=== PATIENT | male | born 1960 | race Caucasian/White ===

== ENCOUNTER 2017-01-01 08:28 | Day surgery (SDC) | payer BC ==
[2017-01-01] MEDS ORDERED: MIDAZOLAM HCL 2MG/2ML VIAL IV ONE (14:00)
[2017-01-01] MEDS ORDERED: LIDOCAINE 2% MDV (20MG/ML) 20ML VIAL IV ONE (14:00)
[2017-01-01] MEDS ORDERED: PROPOFOL 10 MG/ML VIAL IV ONE (14:00)
--- NOTE | 2017-01-05 11:10 | Operative Note ---
DATE OF SURGERY: 01/01/2017 REQUESTING PHYSICIAN: Mark Rodríguez DO SURGEON: Tiffanie Iglesias MD POSTOPERATIVE DIAGNOSES: 1. Left-sided colonic diverticulosis. 2. A 3 mm sessile polyp in the ascending colon that was removed by cold biopsy forceps. OPERATION: COLONOSCOPY and exam. REASON FOR PROCEDURE: This is a 56-year-old male with a history of colon polyps who presented for surveillance colonoscopy. SEDATION: Sedation as per anesthesia. Pulse oximetry was monitored throughout the duration of the procedure to maintain O2 saturation of 90% or greater. Supplemental oxygen was administered via nasal cannula. Cardiac and vital signs were monitored throughout the duration of the procedure and they were stable. PROCEDURE: Description of the procedure of colonoscopy, risks, and alternatives to the procedure including the risk of bleeding and perforation among others were explained to the patient who voiced understanding and agreed to have the procedure done. A physical examination was performed and the patient was found stable for sedation. The patient was then placed in the left lateral position and sedation was initiated. Digital rectal exam was performed and showed small external hemorrhoids with no palpable rectal masses. A lubricated Olympus PCF-180AL colonoscope was then inserted into the rectum under direct visualization and was advanced to the cecum without difficulty. The ileocecal valve and appendiceal orifice were identified and photographed. The colonic mucosa was carefully examined upon insertion of the colonoscope. There were scattered diverticula noted in the sigmoid and descending colon. In the ascending colon was a 3 mm sessile polyp that was noted and was removed by cold biopsy forceps. There were no other lesions noted. The colonoscope was then withdrawn while carefully examining the colonic mucosal surfaces. No other lesions were noted. The bowel preparation was good. In the rectum, retroflexion was performed and grade 1 internal hemorrhoids were noted. The colonoscope was then withdrawn and the procedure was terminated. The patient tolerated the procedure well without any complications. The patient remained with stable vital signs and was sent to the recovery room. PLAN AND RECOMMENDATIONS: 1. Will follow up on histology of the polyp. 2. The patient is to have repeat colonoscopy for surveillance in 3 or 5 years depending on histology of the polyp. Thank you for allowing me to participate in the care of this patient. Tiffanie Iglesias MD CC: Mark Rodríguez DO [facility]
== END 2017-01-01 11:10 | disposition home or self-care (01) ==
LOC: HOP 08:28
PROVIDERS: ATTEND Internal Medicine Gastroenterology
DX: D12.2 Benign neoplasm of ascending colon (principal); K57.30 Diverticulosis of large intestine without perforation or abscess without bleeding; I10 Essential (primary) hypertension; E78.00 Pure hypercholesterolemia, unspecified

== ENCOUNTER 2017-06-24 12:25 | Emergency (ER) | payer BC ==
--- NOTE | 2017-06-24 13:32 | Emergency Department Record ---
History of Present Illness - General Chief complaint: Eye Problem Stated complaint: LEFT EYE PAIN/HEADACHE Time Seen by Provider: 06/24/17 12:42 Source: Patient Mode of Arrival: Ambulatory Limitations: No limitations - History of Present Illness Initial comments: The patient is here due to a 2 day hx of L eye pain. The pain is mainly around the L eye superiorly > inferiorly. It is a throbbing pain and the onset was yesterday. The pain did gradually worsen and then it was quite severe last night. He then did take Alleve last night and it took the pain away. Today the pain started back and has gradually worsened to the point that he was nauseated. The patient denies any visual changes, blurred vision, swelling, trauma or injury. MD chief complaint: Eye pain Onset/Timin -: Days(s) Onset Description: Gradual Location: Left eye Place: Home If Injury: None Eye Symptoms: Redness Severity: Moderate Severity scale (1-10): 8 If Pain, Quality: Aching, Throbbing Consistency: Constant Associated Symptoms: Headache, Nausea/vomiting Treatments Prior to Arrival: None - Related Data Visual acuity (L) = 20/: 30 Visual acuity (R) = 20/: 20 With correction: No Previous Rx's Medication Instructions Recorded Amoxicillin/Potassium Clav 1 tab PO BID #20 tablet 06/24/17 [Augmentin 875Mg/125Mg] Fluticasone Propionate [Flonase] 2 spray EACH NARES DAILY #1 bottle 06/24/17 Allergies Allergy/AdvReac Type Severity Reaction Status Date / Time No Known Drug Intolerances Allergy Unknown PT UNSURE Verified 07/19/16 18:02 OF REACTION Travel Screening - Travel/Exposure Within Last 30 Days Have you traveled within the last 30 days?: No Review of Systems Constitutional: Denies: Chills, Fever Eyes: Reports: Eye pain. Denies: Eye discharge ENT: Denies: Congestion Respiratory: Denies: Cough Past Medical History - SOCIAL HISTORY Smoking Status: Light tobacco smoker (<10/day) Alcohol Use: Rare Drug Use: None - RESPIRATORY Hx Respiratory Disorders: Yes Hx Sleep Apnea: Yes Hx of CPAP: Yes - CARDIOVASCULAR Hx Cardio Disorders: Yes Hx Hypertension: Yes - NEURO Hx Neuro Disorders: No - GI Hx GI Disorders: Yes Hx of Polyps: Yes - Hx Genitourinary Disorders: No - ENDOCRINE Hx Endocrine Disorders: No - MUSCULOSKELETAL Hx Musculoskeletal Disorders: No Comment:: n/a - PSYCH Hx Psych Problems: Yes Hx Anxiety: Yes - HEMATOLOGY/ONCOLOGY Hx Hematology/Oncology Disorders: No Family Medical History Any Significant Family History?: Yes Hx Diabetes: Grandparents Hx Heart Disease: Father Hx HTN: Father Physical Exam - General General Appearance: Alert, Oriented x3, Cooperative, No acute distress - Head Head exam: Atraumatic, Normocephalic, Normal inspection - Eye Eye exam: Normal appearance, PERRL, EOMI, Periorbital tenderness (The pain is reproducible to palpation around the L eye periorbitally. ), Other (The patient did receive alcaine in the L eye which did resolve his pain 90%. His cornea is clear on flourescein staining.). negative: Periorbital swelling With correction: No IOP (L) in mmH IOP measured with: Tonopen - Neck Neck exam: Normal inspection, Full ROM. negative: Meningismus (The neck is very supple.), Tenderness - Respiratory Respiratory exam: Normal lung sounds bilaterally. negative: Respiratory distress - Cardiovascular Cardiovascular Exam: Regular rate, Normal rhythm, Normal heart sounds Course Vital Signs 06/24/17 12:30 Temperature 97.9 F Pulse Rate 77 Respiratory 16 Rate Blood Pressure 142/100 Pulse Ox 94 L - Reevaluation(s) Reevaluation #1: The patient is doing very well at this time. I did explain the CT results that do demonstrate extensive sinus dz with the worst spot the L frontal area. We will place the patient on Augmentin and have his F/U with his PCP next week if needed. 06/24/17 14:51 Medical Decision Making - Data Complexity MDM Data: Labs Ordered and/or Reviewed, X-Ray Ordered and/or Reviewed - Lab Data Result diagrams: 06/24/17 13:55 06/24/17 13:55 - Radiology Data Radiology results: Report reviewed (Head CT: Extensive sinus dz greatest over the L frontal area.) Disposition Disposition: Discharge Clinical Impression: Sinusitis, acute Qualifiers: Sinusitis location: other Recurrence: non-recurrent Qualified Code(s): J01.80 - Other acute sinusitis Disposition: Home, Self-Care Condition: (1) Good Instructions: Sinusitis (ED) Additional Instructions: Please continue your home pain medicines and continue the Augmentin and Flonase. Please see your PCP next week for recheck if not better and return to the ER for any increased pain, fever, headache or vomiting. Prescriptions: Amoxicillin/Potassium Clav [Augmentin 875Mg/125Mg] 1 tab PO BID #20 tablet Fluticasone Propionate [Flonase] 2 spray EACH NARES DAILY #1 bottle Forms: Patient Portal Access Time of Disposition: 14:54 Quality - Quality Measures Quality Measures: N/A - Blood Pressure Screening View Details: Yes Does Patient Have Any of the Following: No Blood Pressure Classification: Normal BP Reading Systolic Measurement: 110 Diastolic Measurement: 72 Screening for High Blood Pressure: < Normal BP, F/U Not Required > [G8783]
[2017-06-24] MEDS ORDERED: PROPARACAINE HCL OPTH 15ML BTL OPTH ONE (13:38)
[2017-06-24 14:03] LABS: BASO % 0.4 % (0-6); EOS % 1.7 % (0-6); GRAN % 80.2 % (47-80); HEMATOCRIT 39.7 % (42.0-52.0); HEMOGLOBIN 13.4 gm/dl (14.0-18.0); LYMPH % 11.4 % (16-45); MEAN CELL VOLUME 93.6 fl (81-97); MEAN CORPUSCULAR HEMOGLOBIN 31.6 pg (27-33); MEAN CORPUSCULAR HGB CONC 33.8 g/dl (32-36); MEAN PLATELET VOLUME 9.1 fl (7.4-10.4); MONO % 6.3 % (0-9); PLATELET COUNT 273 K/uL (130-400); RED BLOOD COUNT 4.24 M/uL (4.40-5.70); RED CELL DISTRIBUTION WIDTH 12.5 % (11.5-14.5); WHITE BLOOD COUNT W/O DIFF 13.3 K/uL (4.2-12.2)
[2017-06-24 14:25] LABS: ALB/GLOB RATIO 1.4 (1.1-1.8); ALKALINE PHOSPHATASE 64 U/L (40-129); ALT/SGPT 21 U/L (<41); AST/SGOT 20 U/L (10.0-50.0); BLOOD UREA NITROGEN 16 mg/dL (6-20); CREATININE 0.8 mg/dL (0.7-1.2); EST GLOMERULAR FILTRATION RATE > 60 mL/min; GLUCOSE,RANDOM 105 mg/dL (74-109); TOTAL PROTEIN 6.9 g/dL (6.6-8.7)
[2017-06-24] MEDS ORDERED: AMOXICILLIN/POTASSIUM CLAV 875MG/125MG TABLET PO ONE (14:49)
--- NOTE | 2017-06-26 07:47 | CT SCAN REPORT ---
DATE: 06/24/2017. EXAM: CT OF THE BRAIN WITHOUT CONTRAST. HISTORY: Headache. TECHNIQUE: CT of the brain without contrast. COMPARISON: MRI of the brain dated 10/25/2010. FINDINGS: The globes are intact. Mucosal thickening of the ethmoid air cells, maxillary sinuses, sphenoid sinuses with near complete opacification of the left frontal sinus. Air fluid level in the left frontal sinus. No displaced or depressed skull fracture. No intra- or extra-axial hemorrhage. CT limited for evaluation of acute infarct. No CT evidence for large or territorial acute infarct. No mass or midline shift. IMPRESSION: TORRES SINUSITIS. THE REMAINDER IS UNREMARKABLE. JOB NUMBER: [id number] [facility]
== END 2017-06-24 15:10 | disposition home or self-care (01) ==
LOC: ER 12:25
DX: J01.80 Other acute sinusitis (principal); H57.12 Ocular pain, left eye; R11.0 Nausea; R51 Headache; I10 Essential (primary) hypertension; F17.210 Nicotine dependence, cigarettes, uncomplicated
CPT/HCPCS: 70450; 80053; 85025; 99283; 99284

== ENCOUNTER 2017-09-13 12:10 | Emergency (ER) | payer BC ==
[2017-09-13] MEDS ORDERED: HYDROMORPHONE HCL 1 MG/ML SYRINGE IVP ONE ×3 (12:25→14:04)
[2017-09-13] MEDS ORDERED: MIDAZOLAM HCL 2MG/2ML VIAL IV ONE ×2 (12:54→14:03)
--- NOTE | 2017-09-13 14:23 | Emergency Department Record ---
History of Present Illness - General Chief complaint: Extremity Problem Stated complaint: LEFT SHOULDER DISLOCATION Time Seen by Provider: 09/13/17 12:21 Source: Patient, RN notes reviewed Mode of Arrival: Ambulatory - History of Present Illness Initial comments: putting his shirt on dislocated his shoulder left. History of previous dislocations and one time had to go to [facility]. Onset/Timin -: Minutes(s) Location: Left, Shoulder History of Same: Yes Severity scale (1-10): >10 Quality: Sharp Consistency: Constant Improves with: Immobilization Worsens with: Exertion, Palpation, Weight bearing Associated Symptoms: Denies other symptoms - Related Data Previous Rx's Medication Instructions Recorded Amoxicillin/Potassium Clav 1 tab PO BID #20 tablet 06/24/17 [Augmentin 875Mg/125Mg] Fluticasone Propionate [Flonase] 2 spray EACH NARES DAILY #1 bottle 06/24/17 Hydrocodone/Acetaminophen [Oneida 1 each PO Q4HR #14 tablet 09/13/17 5-325 Tablet] Allergies Allergy/AdvReac Type Severity Reaction Status Date / Time No Known Drug Intolerances Allergy Unknown PT UNSURE Verified 07/19/16 18:02 OF REACTION Travel Screening - Travel/Exposure Within Last 30 Days Have you traveled within the last 30 days?: No Review of Systems Reviewed: No additional complaints except as noted below Constitutional: Reports: As per HPI. Denies: Chills, Fever, Malaise, Night sweats, Weakness, Weight change Eyes: Reports: As per HPI. Denies: Eye discharge, Eye pain, Photophobia, Vision change ENT: Reports: As per HPI. Denies: Congestion, Dental pain, Ear pain, Epistaxis , Hearing loss, Throat pain Respiratory: Reports: As per HPI. Denies: Cough, Dyspnea, Hemoptysis, Stridor, Wheezes Cardiovascular: Reports: As per HPI. Denies: Arrhythmia, Chest pain, Dyspnea on exertion, Edema, Murmurs, Orthopnea, Palpitations, Paroxysmal nocturnal dyspnea, Rheumatic Fever, Syncope Endocrine: Reports: As per HPI. Denies: Fatigue, Heat or cold intolerance, Polydipsia, Polyuria Gastrointestinal: Reports: As per HPI. Denies: Abdominal pain, Constipation, Diarrhea, Hematemesis, Hematochezia, Melena, Nausea, Vomiting Genitourinary: Reports: As per HPI. Denies: Dysuria, Frequency, Hematuria, Incontinence, Retention, Testicular pain, Testicular mass, Urgency Musculoskeletal: Reports: As per HPI, Arthralgia. Denies: Back pain, Gout, Joint swelling, Myalgia, Neck pain Skin: Reports: As per HPI. Denies: Bruising, Change in color, Change in hair/ nails, Lesions, Pruritus, Rash Neurological: Reports: As per HPI. Denies: Abnormal gait, Confusion, Headache, Numbness, Paresthesias, Seizure, Tingling, Tremors, Vertigo, Weakness Psychiatric: Reports: As per HPI. Denies: Anxiety, Auditory hallucinations, Depression, Homicidal thoughts, Suicidal thoughts, Visual hallucinations Hematological/Lymphatic: Reports: As per HPI. Denies: Anemia, Blood Clots, Easy bleeding, Easy bruising, Swollen glands Past Medical History - SOCIAL HISTORY Smoking Status: Light tobacco smoker (<10/day) Alcohol Use: None Drug Use: None - RESPIRATORY Hx Respiratory Disorders: Yes Hx Sleep Apnea: Yes Hx of CPAP: Yes - CARDIOVASCULAR Hx Cardio Disorders: Yes Hx Hypertension: Yes - NEURO Hx Neuro Disorders: No - GI Hx GI Disorders: Yes Hx of Polyps: Yes - Hx Genitourinary Disorders: No - ENDOCRINE Hx Endocrine Disorders: No - MUSCULOSKELETAL Hx Musculoskeletal Disorders: No Comment:: n/a - PSYCH Hx Psych Problems: Yes Hx Anxiety: Yes - HEMATOLOGY/ONCOLOGY Hx Hematology/Oncology Disorders: No Family Medical History Any Significant Family History?: Yes Hx Diabetes: Grandparents Hx Heart Disease: Father Hx HTN: Father Physical Exam - General General Appearance: Alert, Oriented x3, Cooperative, No acute distress - Head Head exam: Normal inspection - Eye Eye exam: Normal appearance, PERRL Pupils: Normal accommodation - ENT ENT exam: Normal exam, Mucous membranes moist, Normal external ear exam, Normal orophraynx, TM's normal bilaterally Ear exam: Normal external inspection. negative: External canal tenderness Nasal Exam: Normal inspection. negative: Discharge, Sinus tenderness Mouth exam: Normal external inspection, Tongue normal Teeth exam: Normal inspection. negative: Dental caries Throat exam: Normal inspection. negative: Tonsillar erythema, Tonsillar exudate - Neck Neck exam: Normal inspection, Full ROM. negative: Tenderness - Respiratory Respiratory exam: Normal lung sounds bilaterally. negative: Respiratory distress - Cardiovascular Cardiovascular Exam: Regular rate, Normal rhythm, Normal heart sounds - GI/Abdominal GI/Abdominal exam: Soft, Normal bowel sounds. negative: Tenderness - Rectal Rectal exam: Deferred - exam: Deferred - Extremities Extremities exam: Normal capillary refill, Tenderness (step off of anterior dislocation) - Back Back exam: Reports: Normal inspection, Full ROM. Denies: Muscle spasm, Rash noted, Tenderness - Neurological Neurological exam: Alert, Normal gait, Oriented X3, Reflexes normal - Psychiatric Psychiatric exam: Normal affect, Normal mood - Skin Skin exam: Dry, Intact, Normal color, Warm Course Vital Signs 09/13/17 12:21 Temperature 97.9 F Pulse Rate 90 Respiratory 20 Rate Blood Pressure 162/111 Pulse Ox 96 - Reevaluation(s) Reevaluation #1: reduction of shoulder with conscious sedation 3 of dilaudid and 4 mg of versid in increments patient's pulseox and vitals good during the procedure. initially tried the hennipen external rotation maneuver, than traction countertraction across the chest, than laying prone holding one galloon of water. than supine and redid the hennipen external rotation and it spilled in when his arm was totally abducted. patient waking up from conscious sedation and went to xray for post reduction films. 09/13/17 14:17 09/13/17 14:18 Disposition Clinical Impression: Dislocation, shoulder closed Qualifiers: Encounter type: initial encounter Laterality: left Qualified Code(s): S43.005A - Unspecified dislocation of left shoulder joint, initial encounter Disposition: Home, Self-Care Condition: (1) Good Instructions: Shoulder Dislocation (ED) Additional Instructions: folllow up with Dr. Ontiveros in 1-2 weeks Prescriptions: Hydrocodone/Acetaminophen [Oneida 5-325 Tablet] 1 each PO Q4HR #14 tablet Time of Disposition: 14:28 Quality - Quality Measures Quality Measures: N/A - Blood Pressure Screening Does Patient Have Any of the Following: No Blood Pressure Classification: Hypertensive Reading Systolic Measurement: 162 Diastolic Measurement: 111 Screening for High Blood Pressure: < First Hypertensive BP, F/U Documented > [ G8950] First Hypertensive Follow-up Interventions: Referral to alternative/primary care provider.
[2017-09-13] MEDS ORDERED: HYDROCODONE/APAP 5/325MG TABLET PO ONE (14:41)
--- NOTE | 2017-09-14 06:59 | RADIOLOGY REPORT ---
EXAM: SHOULDER, LEFT HISTORY: LEFT SHOULDER PAIN AND POSSIBLE DISLOCATION STATUS POST FALL. TECHNIQUE: Two views of the left shoulder were obtained COMPARISON: June 03, 2013. FINDINGS: There is anterior dislocation of the left humerus with respect to the glenoid. A Hill-Sachs deformity is again noted along the posterolateral aspect of the humeral head and appears similar to the prior study. Multiple surgical anchors are present within the proximal humerus consistent with previous rotator cuff repair. There is no visible acute fracture. Small marginal osteophytes. IMPRESSION: 1. ANTERIOR SHOULDER DISLOCATION. 2. 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 3. POSTSURGICAL CHANGES. JOB NUMBER: [id number] [facility]
--- NOTE | 2017-09-14 07:06 | RADIOLOGY REPORT ---
EXAM: SHOULDER, LEFT HISTORY: LEFT SHOULDER DISLOCATION. POSTREDUCTION VIEWS. TECHNIQUE: Two views of the left shoulder were obtained. COMPARISON: September 13, 2017 and July 19, 2016. ENCOUNTER: Initial. FINDINGS: There has been successful reduction of the previously noted anterior shoulder dislocation. An old Hill-Sachs deformity is present and appears unchanged from the prior study. There is no visible acute fracture. Mild arthritic changes are present within the AC joint. Multiple metallic anchors are present within the proximal humerus. IMPRESSION: 1. SUCCESSFUL REDUCTION OF THE PREVIOUSLY NOTED SHOULDER DISLOCATION. 2. 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 3. NO ACUTE FRACTURE IDENTIFIED. JOB NUMBER: [id number] [facility]
== END 2017-09-13 15:09 | disposition home or self-care (01) ==
LOC: ER 12:10
DX: S43.015A Anterior dislocation of left humerus, initial encounter (principal); I10 Essential (primary) hypertension; F17.210 Nicotine dependence, cigarettes, uncomplicated; X50.0XXA Overexertion from strenuous movement or load, initial encounter
CPT/HCPCS: 23650; 99152; 99284; J1170

== ENCOUNTER 2017-11-02 10:18 | Day surgery (SDC) | payer BC ==
[~2017-11-02 10:18] MED LIST: ACETAMINOPHEN 1,000 MG/100 ML BTL IV ONE; CEFAZOLIN 2 Gram 2 GM/50 ML BAG IVPB ONE
[2017-11-02] MEDS ORDERED: ROPIVACAINE HCL (NAROPIN) /PF 5MG/ML 20ML VIAL IV ONE (10:19)
[2017-11-02] MEDS ORDERED: ROCURONIUM BROMIDE 50MG/5ML VIAL IV ONE (10:19)
[2017-11-02] MEDS ORDERED: KETOROLAC 30 MG/ML VIAL IVP ONE (10:19)
[2017-11-02] MEDS ORDERED: DEXAMETHASONE 4 MG/ML 1ML VIAL IVP ONE (10:19)
[2017-11-02] MEDS ORDERED: SEVOFLURANE 250 ML INH ONE (10:19)
[2017-11-02] MEDS ORDERED: FENTANYL PF 100MCG/2ML VIAL IV ONE (10:19)
[2017-11-02] MEDS ORDERED: PROPOFOL 10 MG/ML VIAL IV ONE (10:19)
[2017-11-02] MEDS ORDERED: EPINEPHRINE 1 MG/ML AMPUL SQ ONE (10:19)
[2017-11-02] MEDS ORDERED: LIDOCAINE 2% MDV (20MG/ML) 20ML VIAL IV ONE (10:19)
[2017-11-02] MEDS ORDERED: GLYCOPYRROLATE 0.2 MG/ML ML IV ONE (10:19)
[2017-11-02] MEDS ORDERED: MIDAZOLAM HCL 2MG/2ML VIAL IV ONE (10:19)
[2017-11-02] MEDS ORDERED: ONDANSETRON HCL IV 4 MG/2 ML VIAL IVP ONE (10:19)
--- NOTE | 2017-11-03 12:30 | Operative Note ---
DATE OF SURGERY: 11/02/2017 Surgeon: Db Borja DO PREOPERATIVE DIAGNOSES: 1. Tear of the left rotator cuff. 2. Impingement syndrome of left shoulder. 3. Chronic tear biceps tendon left shoulder. 4. 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 POSTOPERATIVE DIAGNOSES: 1. Tear of the left rotator cuff. 2. Impingement syndrome of left shoulder. 3. Chronic tear biceps tendon left shoulder. 4. 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 OPERATION: 1. Arthroscopic repair of the left rotator cuff. 2. Arthroscopic subacromial decompression and acromioplasty left shoulder. 3. Arthroscopic anterior capsular reconstruction left shoulder. DESCRIPTION OF PROCEDURE: This 57-year-old male was taken to the operating room and placed in the supine position on the operating room table. General anesthetic was administered after an intrascalene block was performed. The patient was placed in the beach chair position with all bony prominences well padded and head well secured. The left shoulder was prepped with Hibiclens and draped in the usual sterile fashion. A posterior portal was established in the glenohumeral joint. Initial evaluation of the joint demonstrated severe disruption of the anterior glenoid labrum. It was basically shredded and not capable of holding a suture. The patient had tearing and fraying of the subscapularis but it did not appear to be totally ruptured. Biceps tendon was absent. The patient had some fraying of the anterior and superior glenoid labrum and this was debrided through an anterior portal with a rotating shaver. The undersurface of the rotator cuff was also debrided. The patient had a retracted tear of the supraspinatus tendon but the infraspinatus had some fraying/tearing at its anterior margin but posteriorly it appeared to be intact. After debriding the anterior labrum and using a rasp to roughen the anterior surface of the glenoid, we placed 3 sutures in the anterior capsule and secured them to the anterior glenoid utilizing the PushLock suture anchors. We felt that this gave us a good repair. The patient had a drive through sign prior to repair, and this was obliterated after the procedure was performed. We then placed the scope in the subacromial space, and thorough subacromial decompression and acromioplasty was performed. The patient had chronic retracted tear of the supraspinatus. We were not able to mobilize this very much and so it was necessary for us to do [id number] repairs and two #2 FiberWire sutures were used to repair the rotator cuff in a [id number] fashion. Subsequently, an additional horizontal mattress suture was placed to the infraspinatus to bring it over to cover the humeral head, and we debrided the articular cartilage at the margin and moved it medially approximately 5 mm to allow us to get some bony contact with the repaired cuff. The 4 sutures were then passed through a 4.75 SwiveLock anchor and then this was anchored over the top of the tuberosity. This patient's tuberosity was grossly abnormal due to the previous surgical repair. The patient's rotator cuff tissue was of marginal quality. The wound was copiously irrigated with lactated Ringer's solution and the instruments were removed and the portals closed with 4-0 nylon suture. Sterile dressings with an Ultrasling were applied and the patient taken to the recovery room in satisfactory condition. GROSS PATHOLOGY: This patient demonstrated a grossly unstable anterior capsule, and this had been pulled away with the labrum and the labrum was nonfunctional. Capsular reconstruction was performed by placing 3 sutures in the anterior inferior capsule bringing it in a more medial and cephalad direction to shore up the stretched out capsule. In addition, the rotator cuff was repaired with 2 [id number] sutures because of the retraction of the supraspinatus and we were not able to fully mobilize it but we did get the humeral head covered. ERIC
== END 2017-11-02 15:00 | disposition home or self-care (01) ==
LOC: SUR 10:18
PROVIDERS: ATTEND Orthopaedic Surgery
DX: M75.42 Impingement syndrome of left shoulder (principal); M75.122 Complete rotator cuff tear or rupture of left shoulder, not specified as traumatic; I10 Essential (primary) hypertension; M25.312 Other instability, left shoulder; E78.00 Pure hypercholesterolemia, unspecified
CPT/HCPCS: 29827; 29828; 29826; 01630; 64415; J1885; J2405; J3010; J0690; J2795; J0171

== ENCOUNTER 2018-03-31 08:47 | Day surgery (SDC) | payer BC ==
[~2018-03-31 08:47] MED LIST changes: -CEFAZOLIN 2 Gram 2 GM/50 ML BAG IVPB ONE
[2018-03-31] MEDS ORDERED: LIDOCAINE 1% MDV (10MG/ML) 20ML VIAL SQ ONE (08:48)
[2018-03-31] MEDS ORDERED: SEVOFLURANE 250 ML INH ONE (08:48)
[2018-03-31] MEDS ORDERED: BUPIVACAINE 0.25% W/EPI MPF 30ML VIAL IVP ONE (08:48)
[2018-03-31] MEDS ORDERED: PROPOFOL 10 MG/ML VIAL IV ONE (08:48)
[2018-03-31] MEDS ORDERED: MORPHINE SULFATE 5 MG/ML PFS IVP ONE (08:48)
--- NOTE | 2018-04-01 12:40 | Operative Note ---
DATE OF SURGERY: 03/31/2018 Surgeon: Db Borja DO PREOPERATIVE DIAGNOSIS: Torn medial meniscus of the right knee. POSTOPERATIVE DIAGNOSES: 1. Torn medial meniscus, right knee. 2. Chondromalacia of the patella, right knee. OPERATION: 1. Arthroscopic partial medial meniscectomy of the right knee. 2. Arthroscopic chondroplasty of the patella, right knee. DESCRIPTION OF PROCEDURE: This 57-year-old male was taken to the operating room and placed in the supine position on the operating room table. General anesthesia was induced and the right lower extremity was elevated. It was exsanguinated and the tourniquet inflated to 300 mmHg. Arthroscopic knee ambrosio applied. Right knee prepped with Hibiclens and draped in the usual sterile fashion. An inferolateral portal was established for the 4 mm arthroscope. Initial evaluation of the joint demonstrated normal appearance of the suprapatellar pouch and patient had a very small area of grade 2 chondromalacia in the center of the median ridge of the patella. This was an early grade 2 change and chondroplasty was performed to stabilize the articular cartilage there. This lesion was approximately 0.75 cm in greatest dimension. The trochlea appeared normal as did the medial and lateral gutters. The medial compartment was entered and a complex tear of the posterior horn and medial meniscus was present with both flap and horizontal cleavage components present. We utilized the basket forceps and rotating shaver to resect to the apex of the tear which was at approximately the 1-o'clock position and we resected posteriorly and anteriorly to form a smooth contoured surface which was probed and confirmed to be stable. We then directed our attention to the intracondylar notch. That was seen to be normal. The lateral compartment was entered which appeared to be pristine. The joint was then copiously irrigated and suctioned. The instruments were removed. The portals infiltrated with 0.25% Marcaine with epinephrine. Sterile dressings applied. Tourniquet and knee ambrosio released and the patient taken to the recovery room in satisfactory condition. GROSS PATHOLOGY: This patient demonstrated a tear of the posterior horn of the medial meniscus as described. Also a small area of grade 2 chondromalacia of the patella was identified as described. CC: Mark Rodríguez DO [email or web address]
== END 2018-03-31 10:30 | disposition home or self-care (01) ==
LOC: SUR 08:47
PROVIDERS: ATTEND Orthopaedic Surgery
DX: S83.241A Other tear of medial meniscus, current injury, right knee, initial encounter (principal); M22.41 Chondromalacia patellae, right knee; I10 Essential (primary) hypertension; E78.00 Pure hypercholesterolemia, unspecified

== ENCOUNTER 2019-05-06 13:40 | Observation (INO) | payer BC ==
[2019-05-06] MEDS ORDERED: KETOROLAC 30 MG/ML VIAL IVP ONE (13:50)
[2019-05-06] MEDS ORDERED: CLINDAMYCIN 600MG/50ML PREMIX 600 MG/50 ML BAG IVPB ONE (13:50)
--- NOTE | 2019-05-06 13:57 | Emergency Department Record ---
History of Present Illness - General Chief complaint: Lower Extremity Pain Stated complaint: L KNEE INJURY Time Seen by Provider: 05/06/19 13:46 Source: Patient Mode of Arrival: Ambulatory Limitations: No limitations - History of Present Illness Initial comments: 58 yo male presents with about 4 days of swelling and pain of the left knee. He does not remember any specific injury. The patellar area is swollen, warm, and tender. He is an active lpummer. He has a small approximately 1cm scab lateral knee. No fever. No streaking. No history gout. No prior left knee surgery. MD Complaint: Extremity pain, Extremity swelling, Joint swelling -: Days(s) (4) Location: Left History of Same: No -: Yes Arthralgia Radiation: Distal Quality: Aching Consistency: Constant Improves with: Immobilization Worsens with: Palpation, Walking, Weight bearing Associated Symptoms: Denies other symptoms - Related Data Home Medications Medication Instructions Recorded Confirmed Last Taken Cholecalciferol (Vitamin D3) 5,000 unit PO DAILY 05/06/19 05/06/19 05/05/19 [Vitamin D3] Melatonin 10 mg PO QHS 05/06/19 05/06/19 05/05/19 Allergies Allergy/AdvReac Type Severity Reaction Status Date / Time ketamine AdvReac ALTERED Verified 05/06/19 14:53 MENTAL STATUS Review of Systems Constitutional: Denies: Chills, Fever, Malaise, Weakness Eyes: Denies: Eye discharge ENT: Denies: Congestion, Throat pain Respiratory: Denies: Cough Cardiovascular: Denies: Chest pain, Syncope Endocrine: Denies: Fatigue Gastrointestinal: Denies: Abdominal pain, Diarrhea, Nausea, Vomiting Genitourinary: Denies: Dysuria, Frequency, Hematuria Musculoskeletal: Reports: Arthralgia, Joint swelling Skin: Reports: Change in color. Denies: Bruising Neurological: Denies: Confusion Psychiatric: Denies: Anxiety Hematological/Lymphatic: Denies: Easy bleeding, Easy bruising Past Medical History - SOCIAL HISTORY Smoking Status: Current some day smoker - RESPIRATORY Hx Respiratory Disorders: Yes Hx Sleep Apnea: Yes Hx of CPAP: Yes - CARDIOVASCULAR Hx Cardio Disorders: Yes Hx Hypertension: Yes (on meds good control) - NEURO Hx Neuro Disorders: No - GI Hx GI Disorders: Yes Hx Hiatal Hernia: Yes Hx of Polyps: Yes - Hx Genitourinary Disorders: No - ENDOCRINE Hx Endocrine Disorders: No - MUSCULOSKELETAL Hx Musculoskeletal Disorders: Yes Comment:: hx dislocated shoulders - PSYCH Hx Psych Problems: Yes Hx Anxiety: Yes (on meds.) - HEMATOLOGY/ONCOLOGY Hx Hematology/Oncology Disorders: No Family Medical History Hx Diabetes: Grandparents Hx Heart Disease: Father Hx HTN: Father Physical Exam - General General Appearance: Alert, Oriented x3, Cooperative, No acute distress Limitations: No limitations - Head Head exam: Atraumatic, Normal inspection - Eye Eye exam: Normal appearance. negative: Conjunctival injection - ENT ENT exam: Normal exam Ear exam: Normal external inspection Nasal Exam: Normal inspection Mouth exam: Normal external inspection - Neck Neck exam: Normal inspection - Respiratory Respiratory exam: Normal lung sounds bilaterally - Cardiovascular Cardiovascular Exam: Regular rate, Normal rhythm, Normal heart sounds - Extremities Extremities exam: Full ROM, Joint swelling, Tenderness, Other (The knee demonstrates full ROM. The swelling is in the prepatellar area). negative: Normal inspection - Neurological Neurological exam: Alert, Oriented X3 - Psychiatric Psychiatric exam: Normal affect, Normal mood - Skin Skin exam: Dry, Intact, Normal color, Warm Course - Reevaluation(s) Reevaluation #1: 05/06/19 14:34 The CBC was reviewed No acute changes The BMP is normal The Uric Acid is normal The CRP is 8.3 XR was reviewed PrePatellar STS noted Degenerative patella No joint effusion 05/06/19 14:49 Procedure: Needle aspiration of prepatellar bursa Betadine prep Lidocaine 1% with Epi 2ml 18 gauge needle 10ml bloodly to serosangenous thin aspirate. No pus Culture and cell count ordered 05/06/19 14:55 The case was discussed with Sapna Benitez [employer]ACHINE OPERATOR for admission for IV antibiotics 05/06/19 15:48 Medical Decision Making - Lab Data Result diagrams: 05/06/19 14:03 05/06/19 14:03 Disposition Disposition: Admit Clinical Impression: Septic prepatellar bursitis of left knee, Cellulitis Disposition: Still a Patient at [facility] Decision to Admit: Admit from ER Decision to Admit Date: 05/06/19 Decision to Admit Time: 14:52 Condition: (1) Good Time of Disposition: 14:52 Quality - Quality Measures Quality Measures: N/A - Blood Pressure Screening Does Patient Have Any of the Following: Active Dx of HTN Blood Pressure Classification: Pre-Hypertensive BP Reading Systolic Measurement: 132 Diastolic Measurement: 89 Screening for High Blood Pressure: Patient Exclusion, Hx of HTN [G9744]
[2019-05-06 14:08] LABS: ABSOLUTE NEUTROPHIL COUNT 6.25; BASO % 0.5 % (0-6); EOS % 2.3 % (0-6); GRAN % 61.3 % (47-80); HEMATOCRIT 39.2 % (42.0-52.0); HEMOGLOBIN 13.1 gm/dl (14.0-18.0); LYMPH % 25.3 % (16-45); MEAN CELL VOLUME 92.9 fl (81-97); MEAN CORPUSCULAR HGB CONC 33.4 g/dl (32-36); MEAN PLATELET VOLUME 8.8 fl (7.4-10.4); MONO % 10.6 % (0-9); PLATELET COUNT 236 K/uL (130-400); RED BLOOD COUNT 4.22 M/uL (4.40-5.70); WHITE BLOOD COUNT W/O DIFF 10.2 K/uL (4.2-12.2)
[2019-05-06 14:21] LABS: BLOOD UREA NITROGEN 14 mg/dL (6-20); CREATININE 0.8 mg/dL (0.7-1.2); EST GLOMERULAR FILTRATION RATE > 60 mL/min
[2019-05-06 14:24] LABS: GLUCOSE,RANDOM 90 mg/dL (74-109)
[2019-05-06 14:27] LABS: C-REACTIVE PROTEIN 8.23 mg/dL (<0.5)
[2019-05-06] MEDS ORDERED: KETOROLAC 30 MG/ML VIAL IVP PRN (15:38)
[2019-05-06] MEDS ORDERED: ACETAMINOPHEN 500 MG TABLET PO PRN (15:38)
[2019-05-06] MEDS ORDERED: MELATONIN 5 MG TABLET PO SCH (22:00)
[2019-05-06] MEDS: CLINDAMYCIN 600MG/50ML PREMIX 600 MG/50 ML BAG IVPB SCH (22:38)
[2019-05-07] MEDS: CLINDAMYCIN 600MG/50ML PREMIX 600 MG/50 ML BAG IVPB SCH (06:57)
[2019-05-07] MEDS ORDERED: CITALOPRAM 20 MG TABLET PO SCH (10:00)
[2019-05-07] MEDS ORDERED: AMLODIPINE BESYLATE 5MG TAB PO SCH (10:00)
[2019-05-07] MEDS ORDERED: SIMVASTATIN 20 MG TABLET PO SCH (10:00)
[2019-05-07] MEDS ORDERED: LISINOPRIL 20 MG TABLET PO SCH (10:00)
--- NOTE | 2019-05-07 10:25 | History & Physical ---
History of Present Illness - Date of Service Date of Service for History & Physical: 05/07/19 - History of Present Illness Admitting Diagnosis: septic bursitis, prepatellar; cellulitis Travel Screening - Travel/Exposure Within Last 30 Days Have you traveled within the last 30 days?: Yes Location Detail:: [place] - Travel/Exposure Within Last Year Have you traveled outside the [place] in the last year?: Yes Location Detail:: [place] - Additonal Travel Details Have you been exposed to anyone with a communicable illness?: No - Travel Symptoms Symptom Screening: Joint & Muscle Aches Review of Systems Constitutional: Denies: Chills, Fever, Malaise, Weakness Eyes: Denies: Eye discharge ENT: Denies: Congestion, Throat pain Respiratory: Denies: Cough Cardiovascular: Denies: Chest pain, Syncope Endocrine: Denies: Fatigue Gastrointestinal: Denies: Abdominal pain, Diarrhea, Nausea, Vomiting Genitourinary: Denies: Dysuria, Frequency, Hematuria Musculoskeletal: Reports: Arthralgia, Joint swelling Skin: Reports: Change in color. Denies: Bruising Neurological: Denies: Confusion Psychiatric: Denies: Anxiety Hematological/Lymphatic: Denies: Easy bleeding, Easy bruising Past Medical History - SOCIAL HISTORY Smoking Status: Current some day smoker - RESPIRATORY Hx Respiratory Disorders: Yes Hx Sleep Apnea: Yes Hx of CPAP: Yes - CARDIOVASCULAR Hx Cardio Disorders: Yes Hx Hypertension: Yes (on meds good control) - NEURO Hx Neuro Disorders: No - GI Hx GI Disorders: Yes Hx Hiatal Hernia: Yes Hx of Polyps: Yes - Hx Genitourinary Disorders: No - ENDOCRINE Hx Endocrine Disorders: No - MUSCULOSKELETAL Hx Musculoskeletal Disorders: Yes Comment:: hx dislocated shoulders - PSYCH Hx Psych Problems: Yes Hx Anxiety: Yes (on meds.) - HEMATOLOGY/ONCOLOGY Hx Hematology/Oncology Disorders: No Family Medical History Hx Diabetes: Grandparents Hx Heart Disease: Father Hx HTN: Father H&P Meds/Allergies - Allergies Allergies: Allergies Allergy/AdvReac Type Severity Reaction Status Date / Time ketamine AdvReac ALTERED Verified 05/06/19 14:53 MENTAL STATUS - Home Medications Home Medications Medication Instructions Recorded Confirmed Last Taken Cholecalciferol (Vitamin D3) 5,000 unit PO DAILY 05/06/19 05/06/19 05/05/19 [Vitamin D3] Melatonin 10 mg PO QHS 05/06/19 05/06/19 05/05/19 - Active Medications Active Medications: Current Medications Acetaminophen (Tylenol 500mg Tab) 1,000 mg PO Q6H PRN PRN Reason: PAIN - MILD(1-4)/FEVER Amlodipine Besylate (Norvasc) 5 mg PO DAILY [facility] Last Admin: 05/07/19 10:02 Dose: 5 mg Documented by: Citalopram Hydrobromide (Celexa) 40 mg PO DAILY [facility] Last Admin: 05/07/19 10:01 Dose: 40 mg Documented by: Clindamycin Phosphate (Cleocin 600 [id number]) 600 mg in 50 mls @ 100 mls/hr IVPB Q8H [facility] Last Infusion: 05/07/19 07:35 Dose: Infused Documented by: Ketorolac Tromethamine (Toradol) 15 mg IVP Q8H PRN PRN Reason: PAIN - MILD (1-4) Lisinopril (Zestril) 40 mg PO DAILY [facility] Last Admin: 05/07/19 10:01 Dose: 40 mg Documented by: Melatonin (Melatonin) 10 mg PO QHS [facility] Last Admin: 05/06/19 22:38 Dose: 10 mg Documented by: Simvastatin (Zocor) 20 mg PO DAILY [facility] Last Admin: 05/07/19 10:01 Dose: 20 mg Documented by: Physical Exam - Vital Signs Vital Signs: Vital Signs - Last 24 Hrs Temp Pulse Pulse Resp BP BP BP 05/07/19 08:30 98.1 F 71 16 134/84 05/06/19 23:05 97.9 F 70 16 121/76 05/06/19 15:20 98.4 F 76 16 137/92 05/06/19 13:50 98.8 F 90 20 132/89 Pulse Ox 05/07/19 08:30 98 05/06/19 23:05 98 05/06/19 15:20 97 05/06/19 13:50 95 - General General Appearance: Alert, Oriented x3, Cooperative, No acute distress Limitations: No limitations - Head Head exam: Atraumatic, Normal inspection - Eye Eye exam: Normal appearance. negative: Conjunctival injection - ENT ENT exam: Normal exam Ear exam: Normal external inspection Nasal Exam: Normal inspection Mouth exam: Normal external inspection - Neck Neck exam: Normal inspection - Respiratory Respiratory exam: Normal lung sounds bilaterally - Cardiovascular Cardiovascular Exam: Regular rate, Normal rhythm, Normal heart sounds - Extremities Extremities exam: Full ROM, Joint swelling, Tenderness, Other (The knee demonstrates full ROM. The swelling is in the prepatellar area). negative: Normal inspection - Neurological Neurological exam: Alert, Oriented X3 - Psychiatric Psychiatric exam: Normal affect, Normal mood - Skin Skin exam: Dry, Intact, Normal color, Warm Results - Labs Result Diagrams: 05/06/19 14:03 05/06/19 14:03 Labs Last 24 Hours: Laboratory Results - last 24 hr 05/06/19 05/06/19 05/06/19 14:03 14:03 14:50 WBC 10.2 RBC 4.22 L Hgb 13.1 L Hct 39.2 L MCV 92.9 MCH 31.0 MCHC 33.4 RDW 13.0 Plt Count 236 MPV 8.8 Gran % 61.3 Lymphocytes % 25.3 Monocytes % 10.6 H Eosinophils % 2.3 Basophils % 0.5 Absolute Neutrophils 6.25 Sodium 139 Potassium 4.5 Chloride 105 Carbon Dioxide 24.0 Anion Gap 10.0 BUN 14 Creatinine 0.8 Estimated GFR > 60 Random Glucose 90 Uric Acid 5.90 Calcium 9.0 C-Reactive Protein 8.23 H Body Fluid Site Lt knee Fluid Type Synovial Fluid Color Grossly bloody Fluid Character Cloudy Fluid WBC [id number] Fluid RBC [id number] Fluid Neutrophils 90 Fluid Mononuclear Cell 10
--- NOTE | 2019-05-07 10:42 | Discharge Summary ---
Providers Discharge Summary Date: 05/07/19 Date of admission: 05/06/19 15:13 Attending physician: ISAC ANDREA Primary care physician: Mark Rodríguez Physical Exam - Vital Signs Vital Signs: Vital Signs - Last 24 Hrs Temp Pulse Pulse Resp BP BP BP 05/07/19 08:30 98.1 F 71 16 134/84 05/06/19 23:05 97.9 F 70 16 121/76 05/06/19 15:20 98.4 F 76 16 137/92 05/06/19 13:50 98.8 F 90 20 132/89 Pulse Ox 05/07/19 08:30 98 05/06/19 23:05 98 05/06/19 15:20 97 05/06/19 13:50 95 - General General Appearance: Alert, Oriented x3, Cooperative, No acute distress Limitations: No limitations - Head Head exam: Atraumatic, Normal inspection - Eye Eye exam: Normal appearance. negative: Conjunctival injection - ENT ENT exam: Normal exam Ear exam: Normal external inspection Nasal Exam: Normal inspection Mouth exam: Normal external inspection - Neck Neck exam: Normal inspection - Respiratory Respiratory exam: Normal lung sounds bilaterally - Cardiovascular Cardiovascular Exam: Regular rate, Normal rhythm, Normal heart sounds - Extremities Extremities exam: Full ROM, Joint swelling, Tenderness, Other (The knee demonstrates full ROM. The swelling is in the prepatellar area). negative: Normal inspection - Neurological Neurological exam: Alert, Oriented X3 - Psychiatric Psychiatric exam: Normal affect, Normal mood - Skin Skin exam: Dry, Intact, Normal color, Warm Hospitalization - Hospitalization Admission Diagnosis: septic bursitis, prepatellar; cellulitis - Hospitalization Course Procedures: Imaging and X-Rays 05/06/19 13:50 KNEE, LEFT 4 VIEWS [RAD] Stat Abnormal Labs: Abnormal Lab Results 05/06/19 05/06/19 Range/Units 14:03 14:03 RBC 4.22 L (4.40-5.70) M/uL Hgb 13.1 L (14.0-18.0) gm/dl Hct 39.2 L (42.0-52.0) % Monocytes % 10.6 H (0-9) % C-Reactive Protein 8.23 H (<0.5) mg/dL Condition at Discharge: (1) Good Discharge Medications - Discharge Medications Prescriptions: Cefdinir [Omnicef] 300 mg PO BID #20 cap Home Medications: Ambulatory Orders Amlodipine Besylate [Norvasc] 5 mg PO DAILY 07/19/16 [Last Taken 05/05/19] Citalopram Hydrobromide [Celexa] 40 mg PO DAILY 07/19/16 [Last Taken 05/05/19] Lisinopril 40 mg PO DAILY 07/19/16 [Last Taken 05/05/19] Simvastatin 20 mg PO DAILY 07/19/16 [Last Taken 05/05/19] Cholecalciferol (Vitamin D3) [Vitamin D3] 5,000 unit PO DAILY 05/06/19 [Last Taken 05/05/19] Melatonin 10 mg PO QHS 05/06/19 [Last Taken 05/05/19] Acetaminophen [Tylenol 500Mg Tab] 1,000 mg PO Q6H PRN tablet 05/07/19 [Last Taken Unknown] Cefdinir [Omnicef] 300 mg PO BID #20 cap 05/07/19 [Last Taken Unknown] Discharge Plan - Discharge Instructions Activity at Discharge: Increase Activity as Tolerated Diet at Discharge: Regular Diet Additional Instructions: Ice the knee every 4-6 hours Elevate the leg to minimize swelling Take the antibiotic twice a day for 10 days Take Naproxen 1-2x per day to help with inflammation and pain Call your doctor Wednesday for a recheck Return sooner if worse, fever, or any new concerns Quality Measures - Quality Measures Quality Measures: Documentation of Current Medications in Medical Record, Screening for High Blood Pressure and F/U Documented - Current Medications Quality Measure: Measure #130: Documentation of Current Medications - Blood Pressure Screening Quality Measure: Screening for High Blood Pressure and Follow-Up Documented Blood Pressure Classification: Pre-Hypertensive BP Reading Systolic Measurement: 132 Diastolic Measurement: 89 Screening for High Blood Pressure: < Pre-Hypertensive BP, F/U Documented > [G8950] - Elder Abuse Suspicion Index EASI Reference Information: [place] AVILA, Tosin C, Scarlet D, Gaurang Hall.Development and validation of a tool to assist physicians identification of elder abuse: The Elder Abuse Suspicion Index (EASI ). Journal of Elder Abuse and Neglect, 2008; 20 (3): 276-300.
--- NOTE | 2019-05-08 06:08 | RADIOLOGY REPORT ---
EXAM: KNEE, LEFT 4 VIEWS HISTORY: LEFT KNEE PAIN AND SWELLING FOR THE PAST FEW DAYS. REDNESS AND WARMTH TO THE TOUCH. TECHNIQUE: Four views of the left knee were obtained. COMPARISON: None. FINDINGS: There is prominent prepatellar soft tissue swelling suggesting prepatellar bursitis. There is no associated soft tissue air or foreign body. Prominent enthesophytes are present at the upper and lower poles of the patella. There are tiny marginal osteophytes within all three compartments. There is no acute osseous abnormality or joint effusion. IMPRESSION: 1. PROMINENT PREPATELLAR SOFT TISSUE SWELLING SUGGESTING BURSITIS. 2. TRICOMPARTMENTAL ARTHRITIC CHANGES ABOVE. 3. NO ACUTE OSSEOUS ABNORMALITY OR JOINT EFFUSION. JOB NUMBER: [id number] [facility]
== END 2019-05-07 11:25 | disposition home or self-care (01) ==
LOC: ER 13:40 → MEDSURG 15:13
PROVIDERS: ADMIT Internal Medicine; ATTEND Internal Medicine
DX: M70.41 Prepatellar bursitis, right knee (principal); L03.116 Cellulitis of left lower limb; M25.462 Effusion, left knee; I10 Essential (primary) hypertension; G47.33 Obstructive sleep apnea (adult) (pediatric); F17.210 Nicotine dependence, cigarettes, uncomplicated
CPT/HCPCS: 84550; 85025; 86140; 80048; 73564; G0378 ×2; J1885; 96365; 96374; 99220; 99285